=== PATIENT | female | born 1955 | race Caucasian/White ===

== ENCOUNTER 2016-11-05 09:10 | Emergency (ER) | payer OTHER ==
[~2016-11-05] VITALS: Ht 167.6 cm; Wt 99.6 kg
[~2016-11-05 09:10] MED LIST: MUCINEX DM ER1 EACH PO; MULTI-DAY VITA1 EACH PO; VITAMIN C1000 M1 PO; ZITHROMAX Z-PA250 MG PO; [UNRECOGNIZED DRUG - OTHER] PO
[2016-11-05 10:13] LABS: EOSINOPHIL (%) 3.9 % (0-5); EOSINOPHIL COUNT 0.3 K/uL (0-0.3); HEMATOCRIT 39.8 % (36.0-46.0); IMMATURE GRANULOCYTE (%) 0.3 % (0.0-0.7); INSTRUMENT ABS NEUTROPHIL CT 3.8 K/uL; LYMPHOCYTE COUNT 2.4 K/uL (1.0-2.8); MCH 28.4 PG (29.0-34.0); MCHC 33.9 G/DL (30.0-36.0); MCV 83.8 FL (83-99); MEAN PLAT.VOLUME 10.5 uM^3 (9.5-12.4); MONOCYTE (%) 9.2 % (3-12); MONOCYTE COUNT 0.7 K/uL (0-0.8); NEUTROPHIL (%) 52.5 % (45-76); NEUTROPHIL COUNT 3.8 K/uL (1.8-6.4); PLATELET COUNT 302 K/uL (156-360); RBC DIS.WIDTH-CV 13.2 % (11.8-14.6); RBC DIS.WIDTH-SD 40.4 % (39-53); RED BLOOD COUNT 4.75 M/uL (3.80-5.20); WHITE BLOOD COUNT 7.2 K/uL (4.1-10.2)
[2016-11-05 10:33] LABS: TROP-I INTERPRETATION NEGATIVE; TROPONIN-I < 0.01 ng/mL (0.0-0.30)
[2016-11-05 10:47] LABS: CHLORIDE 106 mEq/L (99-109); POTASSIUM 3.9 mEq/L (3.7-5.4); SODIUM 140 mEq/L (136-147)
[2016-11-05 10:49] LABS: GLUCOSE 152 mg/dL (70-99)
[2016-11-05 10:50] LABS: ANION GAP 9 MEQ/L (2-14)
[2016-11-05 10:52] LABS: GFR ESTIMATE (CALCULATED) > 59 mL/min/
[2016-11-05 10:53] LABS: UREA NITROGEN (BUN) 8 mg/dL (9-23)
[2016-11-05 11:41] LABS: PROTHROMBIN TIME 11.5 SEC (10.2-12.9)
[2016-11-05 11:44] LABS: PTT 29.7 SEC (25-37)
[2016-11-05 13:04] LABS: TROP-I INTERPRETATION NEGATIVE; TROPONIN-I < 0.01 ng/mL (0.0-0.30)
[2016-11-05 13:23] LABS: POINT-OF-CARE METER ID UU13113702
[2016-11-05 13:49] VITALS: BP 135/91
== END 2016-11-05 13:52 | disposition home or self-care (01) ==
LOC: EME 09:10
PROVIDERS: Emergency Medicine
DX: R00.2 Palpitations (principal); E11.9 Type 2 diabetes mellitus without complications
CPT/HCPCS: 71010; 80048; 81003; 82948; 83735; 84484; 85025; 85610; 85730; 87040; 93005; 99281; 99285; J7030